=== PATIENT | female | born 1965 | race Caucasian/White ===

== ENCOUNTER → 2018-03-29 | Outpatient (CLI) | payer OTHER | LOC: HYPER 03-24 08:40 | DX: E11.621 Type 2 diabetes mellitus with foot ulcer (principal); L97.421 Non-pressure chronic ulcer of left heel and midfoot limited to breakdown of skin; L89.620 Pressure ulcer of left heel, unstageable; S90.812A Abrasion, left foot, initial encounter; E11.36 Type 2 diabetes mellitus with diabetic cataract; E11.319 Type 2 diabetes mellitus with unspecified diabetic retinopathy without macular edema; E78.5 Hyperlipidemia, unspecified; I10 Essential (primary) hypertension; I25.10 Atherosclerotic heart disease of native coronary artery without angina pectoris; M76.62 Achilles tendinitis, left leg; M77.32 Calcaneal spur, left foot; F32.9 Major depressive disorder, single episode, unspecified; Z95.1 Presence of aortocoronary bypass graft; X58.XXXA Exposure to other specified factors, initial encounter; Y93.89 Activity, other specified; Y92.89 Other specified places as the place of occurrence of the external cause; Y99.8 Other external cause status ==

== ENCOUNTER → 2018-04-12 | Outpatient (CLI) | payer OTHER | LOC: HYPER 07:21 | DX: E11.621 Type 2 diabetes mellitus with foot ulcer (principal); L97.412 Non-pressure chronic ulcer of right heel and midfoot with fat layer exposed; L89.623 Pressure ulcer of left heel, stage 3; E11.36 Type 2 diabetes mellitus with diabetic cataract; E11.319 Type 2 diabetes mellitus with unspecified diabetic retinopathy without macular edema; E78.5 Hyperlipidemia, unspecified; I25.10 Atherosclerotic heart disease of native coronary artery without angina pectoris; I10 Essential (primary) hypertension; M76.62 Achilles tendinitis, left leg; M77.32 Calcaneal spur, left foot; F32.9 Major depressive disorder, single episode, unspecified ==

== ENCOUNTER → 2018-05-03 | Outpatient (CLI) | payer OTHER | LOC: HYPER 06:41 | DX: E11.621 Type 2 diabetes mellitus with foot ulcer (principal); L89.623 Pressure ulcer of left heel, stage 3; L97.421 Non-pressure chronic ulcer of left heel and midfoot limited to breakdown of skin; E11.36 Type 2 diabetes mellitus with diabetic cataract; E11.319 Type 2 diabetes mellitus with unspecified diabetic retinopathy without macular edema; E78.5 Hyperlipidemia, unspecified; I25.10 Atherosclerotic heart disease of native coronary artery without angina pectoris; I10 Essential (primary) hypertension; F32.9 Major depressive disorder, single episode, unspecified ==